=== PATIENT | male | born 1975 | race Caucasian/White ===

== ENCOUNTER 2017-07-11 20:50 | Emergency (ER) | payer OTHER, MEDICARE ==
[2017-07-11] MEDS ORDERED: IOPAMIDOL-300 100 ML VIAL ONE (23:01)
[2017-07-11] MEDS ORDERED: IOPAMIDOL-300 100 ML VIAL IVP ONE (23:18)
--- NOTE | 2017-07-11 23:34 | CT Preliminary Report ---
Exam: CT CHEST W/ IMPRESSION: 1. Elevated right hemidiaphragm with right basilar atelectasis or less likely infiltrate. 2. Postoperative changes in the stomach. Hiatal hernia. 3. No acute posttraumatic findings are seen in the chest. [facility] SITE ID: [id number]
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
[2017-07-12] MEDS ORDERED: KETOROLAC 60 MG/2 ML VIAL IVP STA (00:46)
[2017-07-12] MEDS ORDERED: ONDANSETRON 4 MG/2 ML VIAL IVP STA (00:46)
[2017-07-12] MEDS ORDERED: DEXAMETHASONE 10 MG/ML VIAL IVP STA (00:46)
[2017-07-12] MEDS ORDERED: HYDROmorphone 1 MG/ML SYRINGE IVP STA (00:46)
[2017-07-12 01:36] VITALS: BP 130/88
== END 2017-07-12 02:05 | disposition home or self-care (01) ==
LOC: ED 20:50
DX: S29.019A Strain of muscle and tendon of unspecified wall of thorax, initial encounter (principal); J98.11 Atelectasis; V43.62XA Car passenger injured in collision with other type car in traffic accident, initial encounter
CPT/HCPCS: 71260; 96374; 96375; 99283; 99284; J1170; Q9967

== ENCOUNTER 2017-12-08 15:46 | Emergency (ER) | payer OTHER, MEDICARE ==
[2017-12-08 16:03] VITALS: BP 120/74
--- NOTE | 2017-12-08 16:13 | ED Physician Documentation ---
PD HPI BACK PAIN - Stated complaint Stated Complaint: BACK PX - Chief complaint Chief Complaint: Back Pain - History obtained from History obtained from: Patient, Family - History of Present Illness Timing - onset: Chronic Timing - details: Gradual onset Pain level max: 9 Pain level now: 8 Location: Lower, Right Quality: Pain, Aching, Dull, Similar to prior episodes Associated symptoms: No: Fever, Weakness, Numbness, Incontinent of urine, Unable to urinate, Hematuria, Incontinent of stool Improves with: Rest Worsened by: Movement Similar symptoms before: Diagnosis (sacroilitis) Recently seen: Other ([facility] ED a few weeks ago for same.) - Additional information Additional information: Patient is a 42-year-old male with acute on chronic low back pain. States is in his right sacroiliac joint. He is awaiting surgery for this. Sees his grounds restoration specialist at [facility]. States his pain flared yesterday and was told to come in to the emergency department today as his grounds restoration specialist is out of town. No numbness or tingling. Feels similar to his prior episodes. No loss of bowel or bladder control. PD PAST MEDICAL HISTORY - Past Medical History Past Medical History: Yes Cardiovascular: None Respiratory: None Endocrine/Autoimmune: None GI: None : None HEENT: None Psych: None Musculoskeletal: Chronic back pain Derm: None - Past Surgical History Past Surgical History: Yes General: Cholecystectomy, Gastric surgery, Hiatal hernia repair Ortho: Rotator cuff repair, Spine surgery - Present Medications Home Medications: Ambulatory Orders Medication Instructions Recorded Confirmed Omeprazole [PriLOSEC] 20 mg ORAL DAILY 04/19/14 04/19/14 Cholecalciferol [Vitamin D3] 15,000 unit 07/11/17 Diclofenac Epolamine [Flector] 1 each TD BID PRN #20 adh..patch 12/08/17 Oxycodone HCl/Acetaminophen 1 - 2 each PO Q6H PRN #10 tablet 12/08/17 [Percocet 5-325 mg Tablet] predniSONE [Prednisone] 40 mg PO DAILY #10 tablet 12/08/17 - Allergies Allergies/Adverse Reactions: Allergies Allergy/AdvReac Type Severity Reaction Status Date / Time No Known Drug Allergies Allergy Verified 12/08/17 15:50 - Social History Does the pt smoke?: No Smoking Status: Never smoker Does the pt drink ETOH?: No Does the pt have substance abuse?: No - Immunizations Immunizations are current?: Yes - POLST Patient has POLST: No PD ED PE NORMAL - Vitals Vital signs reviewed: Yes - General General: Alert and oriented X 3, No acute distress, Other (Sitting comfortably in a wheelchair) - HEENT HEENT: PERRL, Moist mucous membranes - Neck Neck: Supple, no meningeal sign, No bony TTP - Cardiac Cardiac: RRR - Respiratory Respiratory: No respiratory distress, Clear bilaterally - Abdomen Abdomen: Soft, Non tender, Non distended - Back Back: Other (No midline spinal tenderness to palpation or percussion. He is tender over the right sacroiliac joint. This reproduces his pain.) - Derm Derm: Warm and dry, No rash - Extremities Extremities: Other (normal bilateral lower extremity patellar and ankle jerk reflexes. Normal great toe extension bilaterally) - Neuro Neuro: Alert and oriented X 3, No motor deficit, No sensory deficit, Other (No saddle anesthesia) - Psych Psych: Normal mood, Normal affect Results - Vitals Vitals: Vital Signs - 24 hr 12/08/17 15:48 Temperature 36.4 C L Heart Rate 89 Respiratory 16 Rate Blood Pressure 120/74 O2 Saturation 96 Oxygen O2 Source Room air PD MEDICAL DECISION MAKING - ED course Complexity details: reviewed old records ([facility] emergency department visit earlier this month), considered differential (no cauda equina, no spinal epidural abscess, no fracture, no aortic dissection or evidence of aneursym rupture), d/w patient, d/w family ED course: Patient is a 42-year-old male with acute on chronic back pain. He states he normally receives a dose of Dilaudid as well as Toradol, this was given in the emergency department. Will prescribe a small amount of pain medication for home. We will also try him on Flector patches and see if this works better for his pain as he cannot take nonsteroidal anti-inflammatory medication secondary to gastric bypass. We will also prescribe a small amount of prednisone as this has helped in the past. Patient has an appointment on Sunday with his spine surgeon. Patient counseled regarding signs and symptoms for which I believe and urgent re-evaluation would be necessary. Patient with good understanding of and agreement to plan and is comfortable going home at this time This document was made in part using voice recognition software. While efforts are made to proofread this document, sound alike and grammatical errors may occur. - Sepsis Event Vital Signs: Vital Signs - 24 hr 12/08/17 15:48 Temperature 36.4 C L Heart Rate 89 Respiratory 16 Rate Blood Pressure 120/74 O2 Saturation 96 Oxygen O2 Source Room air Departure - Departure Disposition: 01 Home, Self Care Clinical Impression: Sacroiliitis Condition: Good Instructions: ED Sacroiliitis Follow-Up: Montrell Aguialr MD [Primary Care Provider] - Within 3 Days Prescriptions: Diclofenac Epolamine [Flector] 1 each TD BID PRN #20 adh..patch PRN Reason: back pain Oxycodone HCl/Acetaminophen [Percocet 5-325 mg Tablet] 1 - 2 each PO Q6H PRN # 10 tablet PRN Reason: pain predniSONE [Prednisone] 40 mg PO DAILY #10 tablet Comments: Return if you worsen. Make sure to follow-up with your doctor for further care. Try the Flector patches as they may provide you good relief without the narcotic side effects. Do not drink alcohol or drive while on narcotic pain medicine. Note that many narcotic pain relievers also contain tylenol/acetaminophen. Please ensure that your total dose of acetaminophen from all sources does not exceed 3 grams (3000mg) per day. You may constipated on this medication, take a stool softener such as "Colace" twice a day while you are on it. Also recommend a tuyb-[id number]-[id number] laxative such as senna or MiraLAX any day that you do not have a bowel movement. If you received narcotic pain medication in the emergency department, do not drive or operate machinery for the next 24 hours. Discharge Date/Time: 12/08/17 16:42
[2017-12-08] MEDS: KETOROLAC 60 MG/2 ML VIAL IM STA (16:18)
[2017-12-08] MEDS: HYDROmorphone 1 MG/ML CARPUJECT IM STA (16:18)
== END 2017-12-08 16:42 | disposition home or self-care (01) ==
LOC: ED 15:46
DX: M46.1 Sacroiliitis, not elsewhere classified (principal)
CPT/HCPCS: 96372; 99283; J1170

== ENCOUNTER 2019-08-05 11:41 | Outpatient (CLI) | payer OTHER | END 2019-08-05 11:42 | disposition home or self-care (01) | LOC: COV 11:41 | PROVIDERS: ATTEND Family Medicine | DX: R05 Cough (principal); R50.9 Fever, unspecified | CPT/HCPCS: 81599 ==

== ENCOUNTER 2022-06-16 13:41 | Outpatient (CLI) | payer OTHER ==
--- NOTE | 2022-06-16 16:04 | MRI Report ---
PROCEDURE: CERVICAL SPINE WO INDICATIONS: BRACHIAL PLEXUS DISORDERS TECHNIQUE: Noncontrast sagittal T1 spin echo and T2 fast spin echo, sagittal STIR, foraminal oblique sagittal T2 fast spin echo, and axial gradient echo or T2 fast spin echo through the cervical spine. COMPARISON: None. FINDINGS: Image quality: Motion artifact is noted. Alignment and Curvature: There is normal bony alignment. Bone Marrow: Marrow demonstrates normal overall signal. Spinal Cord: Visualized spinal cord has normal size and signal. No cerebellar tonsillar herniation. Paraspinous Soft Tissues: No paravertebral masses. Prevertebral soft tissues are normal in thicknes s. C2-C3: The disc height is well-preserved. There is loss of disc signal seen. Mild to moderate disc o steophyte complex is seen, which is eccentric to the right. Mild to moderate facet hypertrophy is see n, right worse than left. There is moderate to severe right-sided and minimal left-sided neuroforamin al narrowing. Mild central canal narrowing is seen. Associated mass effect is seen upon the ventra l spinal cord. C3-C4: Moderate loss of disc height and signal are seen. Moderate disc osteophyte complex is seen , which is eccentric to the right, including a disc osteophyte protrusion involving the right neural foramen, as on series 4 image 10. Uncovertebral joint hypertrophy is seen at this level. Moderate facet hypertrophy is seen. There is severe right-sided and moderate to severe left-sided neuroforam inal narrowing. Moderate central canal narrowing is seen. Associated mass effect is seen upon the ventral spinal cord. C4-C5: Moderate loss of disc height and signal are seen. Moderate disc osteophyte complex is seen. Uncovertebral joint hypertrophy is seen at this level. There is moderate bilateral facet hypertro phy seen, right worse than left. Severe bilateral neuroforaminal narrowing can be seen. At least mode rate central canal narrowing is seen, with associated ventral cord flattening. C5-C6: Moderate loss of disc height and signal are seen. Moderate disc osteophyte complex is seen, w ith a central/right disc osteophyte protrusion. There is also a disc osteophyte protrusion involving the left neuroforamen. There is severe bilateral neuroforaminal narrowing seen. Moderate to severe ce ntral canal narrowing is seen, with associated ventral cord flattening. C6-C7: Moderate loss of disc height and signal are seen. At least moderate disc osteophyte complex i s seen, with a central disc osteophyte protrusion. There is moderate to severe right-sided and modera te left-sided facet hypertrophy. There is severe right-sided and moderate to severe left-sided neurof oraminal narrowing. Moderate to severe central canal narrowing is seen. Associated ventral cord flat tening can be seen. C7-T1: Moderate loss of disc height and signal are seen. Moderate disc osteophyte complex is seen, w hich is eccentric to the right. Moderate to prominent facet hypertrophy is seen. There is severe righ t-sided and moderate to severe left-sided neuroforaminal narrowing. No significant central canal narr owing is seen. IMPRESSION: Multiple levels of significant cervical spine degenerative change can be seen, including several leve ls of severe neuroforaminal narrowing. Several levels of moderate to severe central canal narrowing can be seen, with associated ventral cor d flattening. Reviewed by: Rony Browne MD on 06/16/2022 3:03 PM [place] Approved by: Rony Browne MD on 06/16/2022 3:03 PM [facility] Station ID: [id number]
== END 2022-06-16 13:42 | disposition home or self-care (01) ==
LOC: DI 13:41
PROVIDERS: ATTEND Internal Medicine
DX: M47.812 Spondylosis without myelopathy or radiculopathy, cervical region (principal); M48.02 Spinal stenosis, cervical region

== ENCOUNTER 2023-10-22 19:25 | Outpatient (CLI) | payer OTHER ==
--- NOTE | 2023-10-23 08:17 | Ultrasound Report ---
PROCEDURE: Extremity Soft Tissue Limited INDICATIONS: L ARM LUMP TECHNIQUE: Real-time scanning was performed of the left forearm, with image documentation. COMPARISON: None. FINDINGS: Focused ultrasound examination of left forearm at patient's reported area of palpable lump shows enlarged superficial vein in this region containing intraluminal filling defect. Poor compress ibility is noted. IMPRESSION: Nonocclusive superficial venous thrombosis in left forearm at the area of interest prasanth rning for thrombophlebitis. No other soft tissue mass or drainable fluid collection is seen. Findings were reported to on-call provider by the dentures lab technician on 10/22/2023 at 8:20 PM. Reviewed by: Aleksandr Sal MD on 10/23/2023 8:15 AM PDT Approved by: Aleksandr Sal MD on 10/23/2023 8:15 AM PDT Station ID: [id number]
== END 2023-10-22 19:26 | disposition home or self-care (01) ==
LOC: DI 19:25
PROVIDERS: ATTEND Student in an Organized Health Care Education/Training Program
DX: I82.612 Acute embolism and thrombosis of superficial veins of left upper extremity (principal)

== ENCOUNTER 2024-01-30 10:05 | Outpatient (CLI) | payer OTHER | END 2024-01-30 10:06 | disposition home or self-care (01) | LOC: LAB 10:05 | PROVIDERS: ATTEND Internal Medicine Allergy & Immunology | DX: J30.1 Allergic rhinitis due to pollen (principal); J30.81 Allergic rhinitis due to animal (cat) (dog) hair and dander; J45.40 Moderate persistent asthma, uncomplicated | CPT/HCPCS: 36415; 81599 ==